=== PATIENT | female | born 2000 | race Two or more races ===

== ENCOUNTER 2024-05-12 08:44 | Emergency (ER) | payer OTHER ==
[~2024-05-12] VITALS: Ht 144.8 cm; Wt 61.6 kg
[2024-05-12 08:50] VITALS: RESP 16
[2024-05-12] MEDS: SODIUM CHLORIDE 0.9% 1,000 ML IV ONE (09:36)
[2024-05-12] MEDS: ONDANSETRON HCL 4 MG/2 ML VIAL IV ONE (09:38)
[2024-05-12 10:02] LABS: Basophils # (auto) 0 10 ^3/uL (0-0.2); Basophils % (auto) 0.1 % (0.0-2.0); Eosinophils # (auto) 0.1 10 ^3/uL (0-0.8); Eosinophils % (auto) 0.6 % (0.0-7.0); Hematocrit 40.7 % (36.0-46.0); Hemoglobin 14.1 g/dL (12.2-16.2); Lymphocytes # (auto) 0.5 10 ^3/uL (0.4-5.4); Lymphocytes % (auto) 5.3 % (10.0-50.0); Mean Corpuscular Hemoglobin 31.3 pg (28.0-32.0); Mean Corpuscular Hgb Conc. 34.6 g/dL (32.0-36.0); Mean Corpuscular Volume 90.6 fL (80.0-100.0); Monocytes # (auto) 0.5 10 ^3/uL (0-1.3); Monocytes % (auto) 5.3 % (0.0-12.0); Neutrophils # (auto) 8.6 10 ^3/uL (1.6-8.6); Neutrophils % (auto) 88.7 % (37.0-80.0); Platelet Count (auto) 265 10^3/uL (140-450); Red Blood Cells 4.49 10^6/uL (4.0-5.20); Red Cell Distribution Width 13.6 % (11.8-14.3); White Blood Cell 9.6 10^3/uL (4.4-10.8)
[2024-05-12 10:06] LABS: Chloride 107 mmol/L (98-107); Potassium 3.7 mmol/L (3.5-5.1); Sodium 140 mmol/L (136-145)
[2024-05-12 10:07] LABS: Anion Gap 9 (5-15); Calcium 9.6 mg/dL (8.7-10.4); Carbon Dioxide 24 mmol/L (20-31)
[2024-05-12 10:12] LABS: Glucose 111 mg/dL (74-106)
[2024-05-12 10:13] LABS: BUN/Creatinine Ratio 20.8 (10.0-20.0); Blood Urea Nitrogen 15 mg/dL (9-23)
[2024-05-12 10:13] LABS: Urine Bacteria FEW /hpf (None Seen); Urine Blood 3+ /uL (Negative); Urine Mucus FEW (None Seen); Urine Protein, UAD 1+ (Negative); Urine Specific Gravity 1.034 (1.001-1.035); Urine Urobilinogen Normal (Negative); Urine WBC 4 /hpf (0 - 5); Urine pH 6.5 (5.0-9.0)
[2024-05-12 10:18] LABS: Urine Clarity Cloudy (Clear); Urine Color Amber (Yellow)
[2024-05-12 10:58] VITALS: BP 101/68; PULSE 122; TEMP 98.1; O2SAT 99
== END 2024-05-12 11:00 | disposition home or self-care (01) ==
LOC: ER 08:44
DX: K52.9 Noninfective gastroenteritis and colitis, unspecified (principal); Z91.040 Latex allergy status
CPT/HCPCS: 36415; 80048; 81001; 85025; 96361; 96374; 99283; J2405; J7030

== ENCOUNTER 2024-09-20 06:13 | Emergency (ER) | payer OTHER ==
[~2024-09-20] VITALS: Ht 149.9 cm; Wt 59.1 kg
[2024-09-20 06:19] VITALS: BP 137/69; PULSE 120; RESP 18; O2SAT 97
[2024-09-20] MEDS: ONDANSETRON ODT 4 MG TAB PO ONE (08:01)
--- NOTE | 2024-09-20 08:02 | ED.PDOC ---
History of Present Illness HPI Comments 24 year old with no pertinent MHx presents for we will food poisoning. Patient currently endorsing nausea vomiting diarrhea. Symptoms started yesterday evening after eating Benja in the box. Started nausea then symptoms progressed to vomiting and diarrhea. Patient also endorses lower back pain dizziness that comes and goes with no specific pattern. Has not tried medications for the symptoms listed above. LMP 1 08 02 Denies fevers chills night sweats unintentional weight loss Denies nausea vomiting diarrhea Denies blood in the stool Denies sick contact with similar symptoms Denies new foods/medications Denies family history of GI cancer Denies urgency, frequency, hematuria Denies vaginal discharge Chief Complaint: Flu like Time Seen by MD: 06:48 Reviewed Notes: Nurses Notes, Medications, Allergies Information Source: Patient Past Medical History PAST MEDICAL HISTORY: Denies Surgical History: Denies all surgeries QUALITY COMPLIANCE MANAGER History: No Pertinent QUALITY COMPLIANCE MANAGER History Family History Family History: Reviewed,noncontributory to illness, Unknown Social History Smoker: Non-Smoker Alcohol: Denies ETOH Use Drugs: Denies Drug Use Lives In: Home All Other Systems: Reviewed and Negative (Per HPI) Physical Exam General Appearance: No Apparent Distress, Normal HEENT: Normal ENT Inspection, Pharynx Normal, TMs Normal Neck: Full Range of Motion, Non-Tender, Normal, Normal Inspection Respiratory: Chest Non-Tender, Lungs Clear, No Accessory Muscle Use, No Respiratory Distress, Normal Breath Sounds Cardiovascular: No Edema, No JVD, No Murmur, No Gallop, Normal Peripheral Pulses, Regular Rate/Rhythm Breast Exam: Deferred Gastrointestinal: No Organomegaly, Non Tender, No Pulsatile Mass, Normal Bowel Sounds, Soft Genitalia: Deferred Pelvic: Deferred Rectal: Deferred Extremities: No calf tenderness, Normal capillary refill, Normal inspection, Normal range of motion, Non-tender, No pedal edema Musculoskeletal : Apperance: Normal Neurologic: Alert, No Motor Deficits, Normal Affect, Normal Mood, No Sensory Deficits Cerebellar Function: Normal Reflexes: Normal Skin: Dry, Normal Color, Warm Lymphatic: No Adenopathy Was a procedure done? Was a procedure done?: No Fever Differential Dx Differential Diagnosis: Influenza, UTI, Viral Syndrome, Other X-Ray, Labs, Meds, VS Vital Signs Date Time Temp Pulse Resp B/P (MAP) Pulse Ox O2 Delivery O2 Flow Rate FiO2 09/20/24 08:20 100.2 09/20/24 06:19 100.2 120 18 137/69 (91) 97 100.2 09/20/24 06:19 120 18 97 Room Air 09/20/24 06:19 100.2 120 18 137/69 (91) 97 Lab Test 09/20/24 08:25 09/20/24 08:00 09/20/24 07:43 09/20/24 07:42 Range/Units White Blood Count 7.7 4.4-10.8 10^3/uL Red Blood Count 4.63 4.0-5.20 10^6/uL Hemoglobin 13.9 12.2-16.2 g/dL Hematocrit 41.2 36.0-46.0 % Mean Corpuscular Volume 88.9 80.0-100.0 fL Mean Corpuscular Hemoglobin 30.0 28.0-32.0 pg Mean Corpuscular Hemoglobin Concent 33.7 32.0-36.0 g/dL Red Cell Distribution Width 13.5 11.8-14.3 % Platelet Count 248 140-450 10^3/uL Mean Platelet Volume 8.6 6.9-10.8 fL Neutrophils (%) (Auto) 86.0 H 37.0-80.0 % Lymphocytes (%) (Auto) 7.5 L 10.0-50.0 % Monocytes (%) (Auto) 5.8 0.0-12.0 % Eosinophils (%) (Auto) 0.5 0.0-7.0 % Basophils (%) (Auto) 0.2 0.0-2.0 % Neutrophils # (Auto) 6.6 1.6-8.6 10 ^3/uL Lymphocytes # (Auto) 0.6 0.4-5.4 10 ^3/uL Monocytes # (Auto) 0.4 0-1.3 10 ^3/uL Eosinophils # (Auto) 0 0-0.8 10 ^3/uL Basophils # (Auto) 0 0-0.2 10 ^3/uL Nucleated Red Blood Cells 0.1 % Sodium Level 136 136-145 mmol/L Potassium Level 3.5 3.5-5.1 mmol/L Chloride Level 102 98-107 mmol/L Carbon Dioxide Level 26 20-31 mmol/L Anion Gap 8 5-15 Blood Urea Nitrogen 12 9-23 mg/dL Creatinine 0.67 0.550-1.02 mg/dL Glomerular Filtration Rate Calc 127 >90 mL/min BUN/Creatinine Ratio 17.9 10.0-20.0 Serum Glucose 109 H 74-106 mg/dL Calcium Level 9.9 8.7-10.4 mg/dL Urine Color Yellow Yellow Urine Clarity Turbid H Clear Urine pH 8.5 5.0-9.0 Urine Specific Pool 1.028 1.001-1.035 Urine Protein 1+ H Negative Urine Ketones Negative Negative Urine Blood Trace H Negative /uL Urine Nitrite Negative Negative Urine Bilirubin Negative Negative Urine Urobilinogen Normal Negative mg/dL Urine Leukocyte Esterase 2+ Negative /uL Urine RBC 7 0 - 4 /hpf Urine Microscopic WBC 10 H 0-5 /HPF Urine Squamous Epithelial Cells Mod <5 /hpf Urine Bacteria None seen None Seen /hpf Urine Mucus Few None Seen Urine Glucose Normal Normal mg/dL Urine Test Negative Negative Influenza Type A Antigen Negative Negative Influenza Type B Antigen Negative Negative SARS-CoV-2 Antigen (Rapid) Negative NEGATIVE Current Medications Medications (Trade) Dose Ordered Sig/Natali Route Start Time Stop Time Status Last Admin Ondansetron HCl (Zofran Po) 4 mg ONCE ONCE PO 09/20/24 07:45 09/20/24 07:46 DC 09/20/24 08:01 Acetaminophen (Tylenol Tablet) 650 mg ONCE ONCE PO 09/20/24 07:45 09/20/24 07:46 DC 09/20/24 08:20 Ceftriaxone Sodium (Rocephin) 1,000 mg ONCE ONCE IM 09/20/24 09:15 09/20/24 09:24 DC 09/20/24 09:32 X-Ray, Labs, Meds, VS Comment The patient presents with signs and symptoms that are consistent with a urinary tract infection. The urinalysis confirms the diagnosis. There does not appear to be any signs or symptoms of pyelonephritis or sepsis. In the ED, the patient was treated with Ceftriaxone The patient was overall well appearing and safe for discharge home. Able to tolerate PO. Prescriptions for antibiotics given. The patient is instructed to follow up with primary care physician. Return precautions to the ED discussed. Time of 1ST Reevaluation: 08:01 Reevaluation 1ST: Improved Patient Education/Counseling: Diagnosis, Treatment Family Education/Counseling: Diagnosis, Treatment Departure 1 Departure Time of Disposition: 09:42 Impression: Primary Impression: UTI (urinary tract infection) Qualified Codes: N30.00 - Acute cystitis without hematuria Disposition: HOME / SELF CARE / HOMELESS Condition: Stable e-Prescriptions Nitrofurantoin Monohydrate Mac (Macrobid) 100 Mg Cap 100 MG PO BID for 7 Days, #14 CAP 0 Refills Prov: BATOOL HOWARD NP 09/20/24 Discharged With: Self Critical Care Note Critical Care Time?: No Stability Stability form required: No Heart Score Heart Score: Heart Score Response (Comments) Value History N/A 0 EKG N/A 0 Age N/A 0 Risk Factors N/A 0 Troponin N/A 0 Total 0 BATOOL HOWARD NP Sep 20, 2024 08:02
[2024-09-20] MEDS: ACETAMINOPHEN 325 MG TAB PO ONE (08:20)
[2024-09-20 08:30] LABS: Urine Bacteria None Seen /hpf (None Seen)
[2024-09-20 08:45] LABS: Basophils # (auto) 0 10 ^3/uL (0-0.2); Basophils % (auto) 0.2 % (0.0-2.0); Eosinophils # (auto) 0 10 ^3/uL (0-0.8); Eosinophils % (auto) 0.5 % (0.0-7.0); Hematocrit 41.2 % (36.0-46.0); Hemoglobin 13.9 g/dL (12.2-16.2); Lymphocytes # (auto) 0.6 10 ^3/uL (0.4-5.4); Lymphocytes % (auto) 7.5 % (10.0-50.0); Mean Corpuscular Hgb Conc. 33.7 g/dL (32.0-36.0); Mean Corpuscular Volume 88.9 fL (80.0-100.0); Monocytes # (auto) 0.4 10 ^3/uL (0-1.3); Monocytes % (auto) 5.8 % (0.0-12.0); Neutrophils # (auto) 6.6 10 ^3/uL (1.6-8.6); Nucleated Red Blood Cells % 0.1 %; Platelet Count (auto) 248 10^3/uL (140-450); Red Blood Cells 4.63 10^6/uL (4.0-5.20); Red Cell Distribution Width 13.5 % (11.8-14.3); White Blood Cell 7.7 10^3/uL (4.4-10.8)
[2024-09-20 09:05] LABS: Urine Blood TRACE /uL (Negative); Urine Clarity Turbid (Clear); Urine Color Yellow (Yellow); Urine Mucus FEW (None Seen); Urine Protein, UAD 1+ (Negative); Urine Specific Gravity 1.028 (1.001-1.035); Urine Squamous Epithelial Cell MOD /hpf (<5); Urine Urobilinogen Normal (Negative); Urine WBC 10 /HPF (0-5); Urine pH 8.5 (5.0-9.0)
[2024-09-20 09:09] LABS: Rapid Influenza A Negative (Negative); Rapid Influenza B Negative (Negative)
[2024-09-20 09:11] LABS: COVID19 ANTIGEN SOFIA FIA NEGATIVE (NEGATIVE)
[2024-09-20 09:12] LABS: Chloride 102 mmol/L (98-107); Potassium 3.5 mmol/L (3.5-5.1); Sodium 136 mmol/L (136-145)
[2024-09-20 09:13] LABS: Anion Gap 8 (5-15); Carbon Dioxide 26 mmol/L (20-31)
[2024-09-20 09:14] LABS: Calcium 9.9 mg/dL (8.7-10.4)
[2024-09-20 09:18] LABS: BUN/Creatinine Ratio 17.9 (10.0-20.0); Blood Urea Nitrogen 12 mg/dL (9-23)
[2024-09-20 09:19] LABS: Glucose 109 mg/dL (74-106)
[2024-09-20] MEDS: cefTRIAXone SOD 1,000 MG VL IM ONE (09:32)
[2024-09-20] MEDS: LIDOCAINE 1% HCL (LOCAL ANESTH.) INJ 20ML MDV IJ ONE (09:41)
[2024-09-20] MEDS ORDERED: NITR-87 PO (09:44)
[2024-09-20 09:47] VITALS: TEMP 97.9
== END 2024-09-20 09:53 | disposition home or self-care (01) ==
LOC: ER 06:13
DX: N39.0 Urinary tract infection, site not specified (principal); Z20.822 Contact with and (suspected) exposure to COVID-19
CPT/HCPCS: 36415; 80048; 81001; 81025; 85025; 87426; 87804; 96372; 99283; J0696; Q0162